=== PATIENT | female | born 1965 | race Caucasian/White ===

== ENCOUNTER 2017-12-26 07:51 | Outpatient (CLI) | payer OTHER ==
--- NOTE | 2017-12-26 10:45 | MRI ---
MRI LUMBAR SPINE WITHOUT CONTRAST: Multiplanar, multisequential imaging of the lumbar spine obtained according to lumbar protocol. INDICATION: Fall on November 13. Persistent low back pain with pain into left leg. FINDINGS: There are moderate degenerative changes present with anterolateral osteophytes from the lumbar verteb shagufta most prominent at L2, L3, and L4 levels. Degenerative disk changes with prominent L2-3 with loss of disk space and degenerative disk and end plate change. Degenerative disk signal changes are also seen at L3-4 and L4-5 with mild loss of disk space. There is a superior end plate deformity involving both the L2 and L3 vertebrae consistent with schmor l nodes. There is no edema associated with either of these small nodes indicating chronic end plate deformity. There is a linear signal abnormality seen through the body of L2 and L3 vertebrae on both T1 and T2 s equences. The sagittal images suggest mild trabecular impaction. There is no edema seen within eith er of these vertebrae on the STIR sequence. There is no significant loss of height at either vertebr ae. At L1-2, there is a mild diffuse disk bulge which flattens the thecal sac. Facet and ligamentous hyp ertrophy is present. Mild central canal stenosis. At L2-3, broad-based disk bulge flattens the thecal sac. Facet and ligamentous hypertrophy. Mild to moderate central canal stenosis at this level. There is right foraminal stenosis secondary to disk bulge and facet hypertrophy. At L3-4, broad-based disk bulge flattens the thecal sac. Facet and ligamentous hypertrophy. Moderat e central canal stenosis. Foramen appear patent. At L4-5, broad-based disk bulge with focal protrusion seen centrally and slightly to the left with mi nimal inferior extension. A small protruded disk measures 6 mm AP dimension in the axial plane. The re is compression of the thecal sac and there is prominent facet and ligamentous hypertrophy. These changes result in sever central canal stenosis. Left foraminal stenosis secondary to disk bulge and facet hypertrophy. At L5-S1, diffuse disk bulge with asymmetric protrusion paracentrally and laterally to the left. Thi s compresses the anterior thecal sac on the left and displaces the traversing left S1 nerve root. Le ft foraminal encroachment. Mild central canal stenosis. IMPRESSION: 1. Degenerative disk changes at multiple levels most prominent at L2-3 and L3-4 as described above. 2. Linear signal abnormality within the L2 and L3 vertebrae may represent mild trabecular impaction which could potentially be the result of the described injury. There is no loss of height and there is no edema within either of these vertebrae seen on STIR sequence. 3. Disk bulge and disk protrusions at multiple levels. Severe central canal stenosis at L4-[address] protrusion. Asymmetric protrusion to the left at L5-S1 displaces the traversing left S1 nerve r oot as described above. See description at each level above. Findings discussed with Dr. Delgadillo. CODE CR POS: [facility]
== END 2017-12-26 07:52 | disposition home or self-care (01) ==
LOC: SCSMRI 07:51
PROVIDERS: ATTEND Chiropractor
DX: M51.36 Other intervertebral disc degeneration, lumbar region (principal); M51.27 Other intervertebral disc displacement, lumbosacral region; M51.26 Other intervertebral disc displacement, lumbar region; M48.061 Spinal stenosis, lumbar region without neurogenic claudication; M48.07 Spinal stenosis, lumbosacral region; M51.86 Other intervertebral disc disorders, lumbar region; M51.87 Other intervertebral disc disorders, lumbosacral region; M99.83 Other biomechanical lesions of lumbar region; R93.7 Abnormal findings on diagnostic imaging of other parts of musculoskeletal system
CPT/HCPCS: 72148

== ENCOUNTER 2018-02-23 11:19 | Outpatient (CLI) | payer BC | END 2018-02-23 11:20 | disposition home or self-care (01) | LOC: LABBT 11:19 | PROVIDERS: ATTEND Neurological Surgery | DX: Z01.810 Encounter for preprocedural cardiovascular examination (principal); M54.16 Radiculopathy, lumbar region | CPT/HCPCS: 93005; 93010 ==

== ENCOUNTER 2018-02-26 06:59 | Day surgery (SDC) | payer BC ==
[2018-02-23 13:07] VITALS: BMI 28.1
[2018-02-23 13:42] LABS: Hemoglobin 13.2 g/dL (12.0-16.0); Mean Corpuscular HGB CONC 34.7 g/dL (32.0-36.0); Mean Corpuscular Hemoglobin 30.1 pg (27.0-31.0); Mean Corpuscular Volume 86.5 fL (78.0-98.0); Mean Platelet Volume 9.3 fL (7.4-10.4); Platelet Count 224 thou/uL (130-400); RBC Distribution Width 11.7 % (11.5-14.5); Red Blood Cell (RBC) Count 4.39 mill/uL (4.20-5.40); White Blood Cell (WBC) Count 4.8 thou/uL (4.8-10.8)
[2018-02-23 13:57] LABS: Anion Gap 10 mmol/L (10-20); BUN (Urea Nitrogen) 16 mg/dL (9.8-20.1); Calc. Creatinine Clearance 108 mL/min (70-130); Calcium 9.6 mg/dL (7.8-10.44); Carbon Dioxide 23 mmol/L (22-29); Chloride 111 mmol/L (98-107); Estimated GFR-MDRD 78; Glucose 89 mg/dL (70-105); Potassium 4.1 mmol/L (3.5-5.1); Sodium 140 mmol/L (136-145)
[2018-02-26] MEDS ORDERED: Midazolam HCl 2 mg/2 ml Vial ONE ×2 (07:53→10:27)
[2018-02-26] MEDS ORDERED: CEFAZOLIN/Water 2 GM/20 ML SYRINGE ONE (07:57)
[2018-02-26] MEDS ORDERED: Fentanyl 100 MCG/2 ML VIAL ONE ×4 (10:27→12:25)
[2018-02-26] MEDS ORDERED: Lidocaine 2% Jelly 5 ML TUBE ONE (10:39)
--- NOTE | 2018-02-26 11:40 | OP ---
DATE OF PROCEDURE: 02/26/2018 SURGEON: Pradeep Walters M.D. SALES ENGAGEMENT MANAGER: Amanda Waddell PA-C. PROCEDURE: Left L4-L5 and left L5-S1 microdiskectomy. PROCEDURE IN DETAIL: The patient was brought to the operating room and intubated. She was rolled in the prone position on gel-filled chest rolls. Incision was made exposing L4-L5 and L5-S1 on the lef t and our level was confirmed by x-ray. We performed left L4-L5 and left L5-S1 hemilaminectomies, id entified bulging disks at both levels and completely removed the bulging component of the disk decomp ressing the left L5 and left S1 nerves. We did find some hypermobility at the L4-L5 segment. The wo und was then extensively irrigated. Immaculate hemostasis was secured. Vancomycin powder was applie d and the wound was closed in anatomic layers.
[2018-02-26] MEDS ORDERED: HYDROmorphone 2 MG/ML VIAL ONE (13:10)
[2018-02-26] MEDS ORDERED: Promethazine HCl 25 MG/ML VIAL ONE (14:28)
[2018-02-26] MEDS ORDERED: HYDROcodone/Acetaminophen 5/325 mg Tablet ONE (16:32)
[2018-02-26] MEDS ORDERED: Ondansetron HCl/PF 4 MG/2 ML Vial ONE (16:45)
[2018-02-26] MEDS ORDERED: Lidocaine 1% PF 5 ML VIAL ONE (16:45)
[2018-02-26] MEDS ORDERED: Dexamethasone 20 MG/5 ML VIAL ONE (16:45)
[2018-02-26] MEDS ORDERED: Glycopyrrolate 0.2 MG/ML 5 ML SYRINGE ONE (16:45)
[2018-02-26] MEDS ORDERED: PROPOFOL 200 MG/20 ML VIAL ONE (16:45)
== END 2018-02-26 16:45 | disposition home or self-care (01) ==
LOC: SDC 06:59
PROVIDERS: ATTEND Neurological Surgery
PROC: 0SB20ZZ Excision of Lumbar Vertebral Disc, Open Approach (ICD-10-PCS; principal; 2018-02-26)
DX: M51.16 Intervertebral disc disorders with radiculopathy, lumbar region (principal); M51.17 Intervertebral disc disorders with radiculopathy, lumbosacral region
CPT/HCPCS: 76001; 80048; 85027; 96374; 96375; J1100; J1170; J2001; J2250; J2405; J2550; J2704; J3010; J3370

== ENCOUNTER 2018-08-15 07:53 | Outpatient (CLI) | payer BC ==
[2018-08-15] MEDS ORDERED: Gadobenate Dimeglumine 529 MG/1 ML (20ML VIAL) ONE (09:00)
--- NOTE | 2018-08-15 10:06 | MRI ---
FMRI of the brain with and without contrast: 08/15/2018 COMPARISON: None HISTORY: Headache and vision changes TECHNIQUE: Multiplanar multisequence MR imaging of the brain is obtained with and without contrast FINDINGS: The diffusion weighted imaging demonstrates no evidence for acute infarction. Axial gradient echo imaging demonstrates no evidence for intracranial hemorrhage. There is mild mucosal thickening involving bilateral maxillary sinuses and left sphenoid sinus. Arterial flow voids at the axial level of the skull base appear unremarkable on the T2-weighted imagi ng. Within the inferior and medial aspect of the frontal lobes bilaterally there is encephalomalacia and subcortical increased FLAIR signal. These findings suggest remote bilateral frontal lobe contusions. Postcontrast imaging demonstrates no abnormal enhancement within the brain parenchyma. Regional bone marrow signal intensity appears grossly unremarkable. IMPRESSION: Findings suggesting remote bifrontal contusions. No acute findings.
--- NOTE | 2018-08-15 10:34 | MRI ---
MRI CERVICAL SPINE NONCONTRAST: DATE: 08-15-18 HISTORY: 53-year-old female with M47.12, spondylosis of cervical joint with myelopathy. COMPARISON: None. FINDINGS: Cervical spinal cord is normal in size and signal. Cervical alignment is normal. No high grade facet DJD at any level. Moderate disc space narrowing at C5-6 and C6-7. The rest of the disc spaces are cipriano ntained. C1-2: Normal. C2-3: Normal. C3-4: Normal. C4-5: Small bilateral uncinate process osteophytes, right greater than left, causing mild right neura l foraminal stenosis. No left neural foraminal stenosis and no high grade central stenosis. C5-6: Broad based disc/osteophytic bar complex protrudes into the anterior aspect of the spinal canal , causing mild to moderate central spinal canal stenosis. These are contiguous with moderate sized bi lateral uncinate process osteophytes causing moderate to severe bilateral neural foraminal stenosis. C6-7: Broad based disc/osteophytic bar complex encroaches upon the anterior aspect of the spinal zeke l, causing moderate central spinal canal stenosis. These are contiguous with moderate sized bilateral uncinate process osteophytes that encroach upon the neural foramina, causing severe right neural for aminal stenosis and moderate left neural foraminal stenosis. C7-T1: Normal IMPRESSION: 1. Mild cervical spondylosis, consisting of mild to moderate degenerative disc disease at C5-6 and C6 -7, where there is high grade neural foraminal stenosis bilaterally. 2. The rest of the cervical spine is normal. POS: [facility]
== END 2018-08-15 07:54 | disposition home or self-care (01) ==
LOC: SCSMRI 07:53
PROVIDERS: ATTEND Neurological Surgery
DX: M47.12 Other spondylosis with myelopathy, cervical region (principal); G43.909 Migraine, unspecified, not intractable, without status migrainosus; H53.9 Unspecified visual disturbance; M48.02 Spinal stenosis, cervical region; M50.022 Cervical disc disorder at C5-C6 level with myelopathy
CPT/HCPCS: 70553; 72141; A9577